=== PATIENT | female | born 2000 | race Caucasian/White ===

== ENCOUNTER 2018-10-21 17:47 | Emergency (ER) | payer SELFPAY ==
[~2018-10-21] VITALS: Ht 160 cm; Wt 68.7 kg
[2018-10-21 18:11] VITALS: BP 119/74; PULSE 72; RESP 16; Ht 160 cm; Wt 68.7 kg
== END 2018-10-22 00:24 | disposition left against medical advice (07) ==
LOC: FTE 17:47
DX: Z53.21 Procedure and treatment not carried out due to patient leaving prior to being seen by health care provider (principal)

== ENCOUNTER 2018-10-24 13:26 | Inpatient (IN) | payer MEDICAID ==
[~2018-10-24] VITALS: Ht 160 cm; Wt 75.6 kg
--- NOTE | 2018-10-24 13:39 | ERD ---
ER Documentation Chief Complaint Chief Complaint rt upper quadrant pain w/vomitting x6 days HPI The patient is a 18-year-old female, presenting to the ER because of right upper quad abdominal pain radiating to the right upper back with fever, vomiting and constipation for the last 6 days. She had similar symptoms previously, denies nasal congestion, cough, chest pain, dyspnea, dysuria. She does not smoke nor drink, currently on her menstrual period Medical/surgical history: None ROS All systems reviewed and are negative except as per history of present illness. Medications Home Meds No Active Prescriptions or Reported Meds Allergies Allergies: Coded Allergies: No Known Allergy (Unverified , 10/24/18) Physical Exam Vitals Vital Signs Date Temp Pulse Resp B/P (MAP) Pulse Ox O2 O2 Flow FiO2 Time Delivery Rate 10/24/18 99.5 102 19 103/52 98 Room Air 15:28 (69) 10/24/18 99.5 15:25 10/24/18 102.7 14:03 10/24/18 102.7 140 18 124/80 97 13:31 (95) Physical Exam Const: No acute distress. Head: Atraumatic. Eyes: Normal Conjunctiva. ENT: Normal External Ears, Nose and Mouth. Neck: Full range of motion. No meningismus. Resp: Clear to auscultation bilaterally. Cardio: Regular tachycardic. Abd: Soft, non distended, normal bowel sounds, moderate to moderate right upper quadrant tenderness, no right lower quadrant/rigidity/rebound tenderness, positive for moderate right CVA tenderness Skin: No petechiae or rashes. Back: No midline or flank tenderness. Ext: No cyanosis, or edema. Neur: Awake and alert. No focal deficit Psych: Normal Mood and Affect. Result Diagram: 10/24/18 1351 10/24/18 1351 Results 24 hrs Laboratory Tests Test 10/24/18 13:45 10/24/18 13:51 10/24/18 13:55 10/24/18 15:09 Bedside Urine pH 6.0 (LAB) Bedside Urine 1+ Protein (LAB) Bedside Urine Negative Glucose (UA) Bedside Urine 4+ Ketones (LAB) Bedside Urine 2+ Blood Bedside Urine Positive Nitrite (LAB) Bedside Urine 1+ Leukocyte Esterase (L POC Beta HCG, NEGATIVE Qualitative White Blood Count 18.8 10^3/ul Red Blood Count 4.65 10^6/ul Hemoglobin 13.0 g/dl Hematocrit 39.2 % Mean Corpuscular 84.3 fl Volume Mean Corpuscular 28.0 pg Hemoglobin Mean Corpuscular 33.2 g/dl Hemoglobin Concent Red Cell 13.2 % Distribution Width Platelet Count 230 10^3/UL Mean Platelet 11.6 fl Volume Immature 0.900 % Granulocytes % Neutrophils % 75.3 % Lymphocytes % 12.2 % Monocytes % 11.1 % Eosinophils % 0.1 % Basophils % 0.4 % Nucleated Red 0.0 /100WBC Blood Cells % Immature 0.160 10^3/ul Granulocytes # Neutrophils # 14.2 10^3/ul Lymphocytes # 2.3 10^3/ul Monocytes # 2.1 10^3/ul Eosinophils # 0.0 10^3/ul Basophils # 0.1 10^3/ul Nucleated Red 0.0 10^3/ul Blood Cells # Urine Color YELLOW Urine Clarity SLIGHTLY CLOUDY Urine pH 6.0 Urine Specific 1.011 [place] Urine Ketones 2+ mg/dL Urine Nitrite POSITIVE mg/dL Urine Bilirubin NEGATIVE mg/dL Urine Urobilinogen NEGATIVE mg/dL Urine Leukocyte 1+ Marjorie/ul Esterase Urine Microscopic 1 /HPF RBC Urine Microscopic 22 /HPF WBC Urine Bacteria FEW /HPF Urine Yeast FEW /HPF (Budding) Urine Hemoglobin 2+ mg/dL Urine Glucose NEGATIVE mg/dL Urine Total NEGATIVE mg/dl Protein Sodium Level 137 mmol/L Potassium Level 3.2 mmol/L Chloride Level 99 mmol/L Carbon Dioxide 26 mmol/L Level Anion Gap 12 Blood Urea 7 mg/dl Nitrogen Creatinine 0.85 mg/dl Est Glomerular > 60 mL/min Filtrat Rate mL/min Glucose Level 115 mg/dl Calcium Level 8.5 mg/dl Total Bilirubin 0.7 mg/dl Direct Bilirubin 0.00 mg/dl Indirect Bilirubin 0.7 mg/dl Aspartate Amino 33 IU/L Transf (AST/SGOT) Alanine 49 IU/L Aminotransferase ( ALT/SGPT) Alkaline 114 IU/L Phosphatase Total Protein 7.1 g/dl Albumin 3.8 g/dl Globulin 3.30 g/dl Albumin/Globulin 1.15 Ratio POC Venous Lactate 1.5 mmol/L Prothrombin Time 14.9 Sec Prothrombin Time 1.2 Ratio INR International 1.16 Normalized Ratio Activated 36.[address] Time Current Medications Medications Dose Sig/Stas Start Time Status Last (Trade) Ordered Route PRN Stop Time Admin Dose Reason Admin Sodium 2,100 ml BOLUS OVER 2 10/24/18 DC 10/24/18 Chloride HOURS STAT 13:45 14:04 (NS) IV* 10/24/18 13:48 650 mg ONCE STAT 10/24/18 DC 10/24/18 Acetaminophen PO 13:45 14:03 (Tylenol 10/24/18 13:48 Tab) Ondansetron 4 mg ONCE STAT 10/24/18 DC 10/24/18 HCl (Zofran IV 13:45 14:03 Inj) 10/24/18 13:48 Ceftriaxone 50 ml @ ONCE ONCE 10/24/18 10/24/18 Sodium 100 mls/hr IVPB 15:30 15:25 10/24/18 15:59 Ibuprofen 600 mg ONCE ONCE 10/24/18 DC 10/24/18 (Motrin) PO 15:30 15:25 10/24/18 15:31 Potassium 40 meq ONCE STAT 10/24/18 DC Chloride PO 15:33 (Klor-Con 20) 10/24/18 15:34 Procedures/[place] [address] Radiology Main Line: [phone] DIAGNOSTIC IMAGING REPORT Patient: OMID SMILEY : 2000 Age: 18 Sex: F MR #: [id number] DOS: 10/24/18 1345 Ordering MD: KENAN ROBERT MD Location: E/R Room/Bed: PROCEDURE: XR Chest. CLINICAL INDICATION: Possible Sepsis TECHNIQUE: Portable AP view of the chest was obtained. COMPARISON: None. FINDINGS: The cardiomediastinal silhouette is within normal limits. The lungs are clear. No signs of pleural fluid or pneumothorax are seen. The osseous structures and soft tissues are unremarkable. IMPRESSION: No evidence for active cardiopulmonary disease. RPTAT:AAJJ Physician Nasima Date Time Electronically viewed and signed by Raciel Kumar Physician on 10/24/2018 15:05 RF/ CC: KENAN ROBERT MD [id number] [place] [address] Radiology Main Line: [phone] DIAGNOSTIC IMAGING REPORT Patient: OMID SMILEY : 2000 Age: 18 Sex: F MR #: [id number] DOS: 10/24/18 1345 Ordering MD: KENAN ROBERT MD Location: E/R Room/Bed: PROCEDURE: US Abdomen. CLINICAL INDICATION: abdominal pain TECHNIQUE: Multiple real-time images were acquired of the patient's right upper quadrant abdomen and retroperitoneum utilizing a high resolution tr ansducer. COMPARISON: None FINDINGS: The liver demonstrates normal echogenicity. The liver is normal in size and no focal solid lesions are seen. The liver measures 16 cm in length. The portal vein is patent with normal direction of flow. No intrahepatic biliary dilatation is seen. No gallstones are identified within the gallbladder. There is no pericholecystic fluid or gallbladder wall thickening. The common bile duct measures 3 mm in maximal dimension. The visualized portions of the pancreas are unremarkable. The tail of the pancreas is not seen. No free fluid is identified. The right kidney is normal in size, and demonstrate normal echogenicity and cortical thickness. The right kidney measures 10.5 cm in long dimension. There is no evidence of hydronephrosis. There are no kidney stones. RPTAT: AA IMPRESSION: Unremarkable right upper quadrant abdominal ultrasound. .Elton Allen MD, MD Date Time Electronically viewed and signed by .Elton Allen MD, on 10/24/2018 15:27 .S/ CC: KENAN ROBERT MD [phone] EKG: Read by emergency physician Rate/Rhythm: Normal Sinus Rhythm 96 beats/min QRS, ST, T-waves: No ST elevation, no T inversion, LAE, prolong QT Impression: Abnormal EKG MEDICAL MAKING DECISION: The patient is a 18-year-old female, presenting with acute right pyelonephritis, acute hypokalemia. She was treated with normosaline 30 mm/kg IV for acute dehydration, Tylenol and Motrin for fever, Zofran 4 mg IV for nausea, Rocephin 1 g IV for acute pyelonephritis, potassium chloride 40 mEq p.o. for acute hypokalemia with good response. The differential diagnoses considered include but are not limited to cholelithiasis, cholecystitis, choledocholithiasis, cholangitis, pancreatitis, hepatitis, gastritis, peptic ulcer disease, gastric ulcer, appendicitis, cystitis, diverticulitis, partial small bowel obstruction. Departure Diagnosis: Primary Impression: Pyelonephritis of right kidney Additional Impression: Hypokalemia Condition: Stable Comments The patient's blood pressure was elevated (>120/80) but appears stable without evidence of hypertension emergency or urgency. The patient was counseled about the risks of hypertension and urged to pursue outpatient monitoring and therapy within a week with their primary care physician. I discussed the findings with the patient. I discussed the patient with the ander whitman , who was made aware of the lab, the treatment, the patient condition. The patient is admitted to [facility] Disclaimer: Inadvertent spelling and grammatical errors are likely due to EHR/dictation software use and do not reflect on the overall quality of patient care. Also, please note that the electronic time recorded on this note does not necessarily reflect the actual time of the patient encounter. KENAN ROBERT MD October 24, 2018 13:39
[2018-10-24] MEDS ORDERED: ACETAMINOPHEN 325 MG TAB PO STA (13:45)
[2018-10-24] MEDS ORDERED: ONDANSETRON 4 MG INJ IV STA (13:45)
[2018-10-24] MEDS ORDERED: SODIUM CHLORIDE 0.9% 1L BAG IV* STA (13:45)
[2018-10-24] MEDS ORDERED: CEFTRIAXONE 1 GM/50 ML (PMX) 50 ML IVPB ONE ×2 (15:30→16:30)
[2018-10-24] MEDS ORDERED: IBUPROFEN 600 MG TAB PO ONE (15:30)
[2018-10-24] MEDS ORDERED: POTASSIUM CHLORIDE (SR) 20 MEQ TAB PO STA (15:33)
--- NOTE | 2018-10-24 16:07 | HP ---
Date/Time of Note Date/Time of Note DATE: 10/24/18 TIME: 16:07 Assessment/Plan VTE Prophylaxis Pharmacological prophylaxis: LMWH Lines/Catheters IV [facility] Saline Lock Assessment/Plan Hospital Course 18-year-old female with no significant comorbidities who came to the emergency room with chief complaint of fevers with nausea/vomiting and right sided abdominal/flank pain, who was found to have evidence of underlying sepsis and will be admitted to inpatient setting for further treatment and evaluation. 1. Sepsis with leukocytosis, febrile illness, and tachycardia, present on admission. -Most probably secondary to underlying right-sided pyelonephritis. -Continue empiric antimicrobials. -Send linares cultures. -Continue IV fluids. -Monitor for any early signs of septic shock. 2. Right pyelonephritis -Continue IV hydration. -Continue empiric antimicrobials -Await final urine cultures. Plan: The patient will be admitted to inpatient medical surgical floor. The patient will be started on a regular diet. The patient will be started on DVT prophylaxis. The patient will remain a full code. Activities will be as tolerated. The rest of the patient's management will be based on the clinical course and the results of diagnostic studies. Based on the patient's clinical presentation, she most probably requires at least 1 midnight's stay for further management and evaluation of her clinical presentation. The patient was seen in collaboration with Dr. Hankins. Result Diagram: 10/24/18 1351 10/24/18 1351 Results 24hrs Laboratory Tests Test 10/24/18 13:45 10/24/18 13:51 10/24/18 13:55 10/24/18 15:09 Bedside Urine pH 6.0 (LAB) Bedside Urine 1+ H Protein (LAB) Bedside Urine Negative Glucose (UA) Bedside Urine 4+ H Ketones (LAB) Bedside Urine 2+ H Blood Bedside Urine Positive H Nitrite (LAB) Bedside Urine 1+ H Leukocyte Esteras e (L POC Beta HCG, NEGATIVE Qualitative White Blood Count 18.8 H Red Blood Count 4.65 Hemoglobin 13.0 Hematocrit 39.2 Mean Corpuscular 84.3 Volume Mean Corpuscular 28.0 L Hemoglobin Mean Corpuscular 33.2 Hemoglobin Concen t Red Cell 13.2 Distribution Width Platelet Count 230 Mean Platelet 11.6 H Volume Immature 0.900 H Granulocytes % Neutrophils % 75.3 H Lymphocytes % 12.2 L Monocytes % 11.1 Eosinophils % 0.1 Basophils % 0.4 Nucleated Red 0.0 Blood Cells % Immature 0.160 H Granulocytes # Neutrophils # 14.2 H Lymphocytes # 2.3 Monocytes # 2.1 H Eosinophils # 0.0 Basophils # 0.1 Nucleated Red 0.0 Blood Cells # Urine Color YELLOW Urine Clarity SLIGHTLY CLOUDY A Urine pH 6.0 Urine Specific 1.011 [place] Urine Ketones 2+ H Urine Nitrite POSITIVE A Urine Bilirubin NEGATIVE Urine NEGATIVE Urobilinogen Urine Leukocyte 1+ H Esterase Urine Microscopic 1 RBC Urine Microscopic 22 H WBC Urine Bacteria FEW A Urine Yeast FEW A (Budding) Urine Hemoglobin 2+ H Urine Glucose NEGATIVE Urine Total NEGATIVE Protein Sodium Level 137 Potassium Level 3.2 L Chloride Level 99 Carbon Dioxide 26 Level Anion Gap 12 Blood Urea 7 Nitrogen Creatinine 0.85 Est Glomerular > 60 Filtrat Rate mL/min Glucose Level 115 Calcium Level 8.5 Total Bilirubin 0.7 Direct Bilirubin 0.00 Indirect 0.7 Bilirubin Aspartate Amino 33 Transf (AST/SGOT) Alanine 49 Aminotransferase (ALT/SGPT) Alkaline 114 Phosphatase Total Protein 7.1 Albumin 3.8 Globulin 3.30 H Albumin/Globulin 1.15 Ratio POC Venous 1.5 Lactate Prothrombin Time 14.9 Prothrombin Time 1.2 Ratio INR International 1.16 Normalized Ratio Activated 36.9 H Partial Thrombopl ast Time Test 10/24/18 15:10 Lactic Acid Level 0.8 HPI/ROS Admit Date/Time Admit Date/Time Hx of Present Illness Reason for admission: Sepsis secondary to right pyelonephritis. This is a 18-year-old female who denies any significant past medical history. She started having pain in the right upper quadrant with associated fevers and chills with the pain radiating to the back since 10/19/2018. The patient came to the emergency room at [facility] on 10/21/2018. However, she left the ER before she was evaluated. The patient has been taking [id number] Advil and Tylenol with minimal relief in her symptomatology. The patient had poor oral intake. The patient had multiple episodes of nausea and nonbilious, nonbloody vomiting. The patient denied any sick contacts. The patient denied any sore throat, cough, or dyspnea. The patient denied any headache. She denied any diarrhea. She denied any dysuria or hematuria. She denied any urinary frequency or urgency. In the emergency room, the patient was noticed to have sepsis with underlying leukocytosis, febrile illness, and tachycardia. The patient's urinalysis was positive with positive leukocyte esterase and positive nitrate. The patient was given IV fluid bolus, IV pain control, and IV antibiotics. ROS Constitutional: chills, febrile, poor po Eyes: no complaints ENT: no complaints Respiratory: no complaints Cardiovascular: no complaints Gastrointestinal: pain, nausea, vomiting Genitourinary: flank pain Musculoskeletal: no complaints Skin: no complaints Neurologic: no complaints Endocrine: no complaints Lymphatic: no complaints Psychological: no complaints Immunologic: no complaints PMH/Family/Social Past Medical History Medical History: no pertinent history Coded Allergies: No Known Allergy (Unverified , 10/24/18) Past Surgical History Past Surgical Hx: no surgical history Social History Works at [employer] Lives at home. Alcohol Use: none Smoking Status: Never smoker Drug Use: none Exam/Review of Systems Vital Signs Vitals Vital Signs Date Temp Pulse Resp B/P (MAP) Pulse Ox O2 O2 Flow FiO2 Time Delivery Rate 10/24/18 99.5 102 19 103/52 98 Room Air 15:28 (69) Exam Exam General: Adequately build 18 year-old female lying in bed in no apparent distress. HEENT: Normocephalic, atraumatic. Eyes: Anicteric sclerae, conjunctivae clear. ENT: Nasal septum midline, oral mucosa moist. Neck supple, no JVD noticed. Respiratory: Bilaterally clear breath sounds. No use of accessory muscles of respiration. No adventitious breath sounds. Cardiovascular: S1, S2 heard. Regular rate and rhythm. Abdomen: Soft and nondistended. Bowel sounds positive in all 4 quadrants. Genitourinary: Right CVA tenderness. Extremities: No cyanosis, no clubbing, no edema. Peripheral pulses palpable. Neurologic: Cranial nerves II through XII grossly intact. The patient is awake, alert, and oriented. Skin: Normal skin turgor. No skin rashes. Additional Comments Abdominal Ultrasound IMPRESSION: Unremarkable right upper quadrant abdominal ultrasound. CXR IMPRESSION: No evidence for active cardiopulmonary disease. 12-Lead EKG Normal sinus rhythm. JODIE DOAN NP October 24, 2018 16:07
[2018-10-24] MEDS ORDERED: ACETAMINOPHEN 325 MG TAB PO PRN (16:30)
[2018-10-24] MEDS: SOD CHLORIDE 0.9% 1,000 ML IV SCH (16:30)
[2018-10-24] MEDS ORDERED: NACL 0.9% 3 ML SYG IV SCH (16:30)
[2018-10-24] MEDS ORDERED: ONDANSETRON 4 MG INJ IV PRN (16:30)
[2018-10-24 17:25] VITALS: BP 105/56; PULSE 82; RESP 18
[2018-10-24 17:56] VITALS: Ht 160 cm; Wt 75.6 kg
[2018-10-24 20:00] VITALS: BP 91/54; PULSE 74; RESP 18
[2018-10-25] MEDS: SOD CHLORIDE 0.9% 1,000 ML IV SCH ×4 (01:52→23:14)
[2018-10-25] MEDS: HYDROCODONE/APAP (5/325) TAB PO PRN ×2 (01:53→23:14)
[2018-10-25 02:00] VITALS: BP 117/82; PULSE 119; RESP 17
[2018-10-25 03:33] VITALS: PULSE 90
[2018-10-25 08:02] VITALS: BP 112/56; PULSE 120; RESP 18
[2018-10-25] MEDS: ENOXAPARIN 40 MG/0.4 ML SYG SC SCH (08:29)
--- NOTE | 2018-10-25 10:58 | PN ---
Date/Time of Note Date/Time of Note DATE: 10/25/18 TIME: 10:57 Assessment/Plan VTE Prophylaxis Risk score (from Ns)>0 risk: 2 SCD applied (from Ns): Yes Pharmacological prophylaxis: LMWH Lines/Catheters IV Catheter Type (from Rust): Peripheral IV Assessment/Plan Hospital Course SUBJECTIVE: Denies any abdominal pain. Continues to have some back pain. Denies any nausea vomiting. Had febrile episodes today. Denies any dysuria. OBJECTIVE: Physical Exam General: Adequately build 18 year-old female lying in bed in no apparent distress. HEENT: Normocephalic, atraumatic. Eyes: Anicteric sclerae, conjunctivae clear. ENT: Nasal septum midline, oral mucosa moist. Neck supple, no JVD noticed. Respiratory: Bilaterally clear breath sounds. No use of accessory muscles of respiration. No adventitious breath sounds. Cardiovascular: S1, S2 heard. Regular rate and rhythm. Abdomen: Soft and nondistended. Bowel sounds positive in all 4 quadrants. Genitourinary: Right CVA tenderness. Extremities: No cyanosis, no clubbing, no edema. Peripheral pulses palpable. Neurologic: Cranial nerves II through XII grossly intact. The patient is awake, alert, and oriented. Skin: Normal skin turgor. No skin rashes. Labs & Vitals per chart ASSESSMENT & PLAN 18-year-old female with no significant comorbidities who came to the emergency room with chief complaint of fevers with nausea/vomiting and right sided abdominal/flank pain, who was found to have evidence of underlying sepsis and was admitted to inpatient setting for further treatment and evaluation. 1. Sepsis with leukocytosis, febrile illness, and tachycardia, present on admission. -Most probably secondary to underlying right-sided pyelonephritis. -Continue empiric antimicrobials. -Sweeney cultures pending. -Continue IV fluids. -Monitor for any early signs of septic shock. 2. Right pyelonephritis -Continue IV hydration. -Continue empiric antimicrobials -Await final urine cultures. 3. Fluids, electrolytes, and nutrition. -Regular diet. 4. DVT prophylaxis -Subcutaneous Lovenox. 5. Plan. -Continue antimicrobials. -Continue IV fluids. -Await final cultures. The patient was seen in collaboration with Dr. Hankins. Result Diagram: 10/25/18 0534 10/25/18 0534 Results 24hrs Laboratory Tests Test 10/24/18 13:45 10/24/18 13:51 10/24/18 13:55 10/24/18 15:09 Bedside Urine pH 6.0 (LAB) Bedside Urine 1+ H Protein (LAB) Bedside Urine Negative Glucose (UA) Bedside Urine 4+ H Ketones (LAB) Bedside Urine 2+ H Blood Bedside Urine Positive H Nitrite (LAB) Bedside Urine 1+ H Leukocyte Esteras e (L POC Beta HCG, NEGATIVE Qualitative White Blood Count 18.8 H Red Blood Count 4.65 Hemoglobin 13.0 Hematocrit 39.2 Mean Corpuscular 84.3 Volume Mean Corpuscular 28.0 L Hemoglobin Mean Corpuscular 33.2 Hemoglobin Concen t Red Cell 13.2 Distribution Width Platelet Count 230 Mean Platelet 11.6 H Volume Immature 0.900 H Granulocytes % Neutrophils % 75.3 H Lymphocytes % 12.2 L Monocytes % 11.1 Eosinophils % 0.1 Basophils % 0.4 Nucleated Red 0.0 Blood Cells % Immature 0.160 H Granulocytes # Neutrophils # 14.2 H Lymphocytes # 2.3 Monocytes # 2.1 H Eosinophils # 0.0 Basophils # 0.1 Nucleated Red 0.0 Blood Cells # Urine Color YELLOW Urine Clarity SLIGHTLY CLOUDY A Urine pH 6.0 Urine Specific 1.011 [place] Urine Ketones 2+ H Urine Nitrite POSITIVE A Urine Bilirubin NEGATIVE Urine NEGATIVE Urobilinogen Urine Leukocyte 1+ H Esterase Urine Microscopic 1 RBC Urine Microscopic 22 H WBC Urine Bacteria FEW A Urine Yeast FEW A (Budding) Urine Hemoglobin 2+ H Urine Glucose NEGATIVE Urine Total NEGATIVE Protein Sodium Level 137 Potassium Level 3.2 L Chloride Level 99 Carbon Dioxide 26 Level Anion Gap 12 Blood Urea 7 Nitrogen Creatinine 0.85 Est Glomerular > 60 Filtrat Rate mL/min Glucose Level 115 Calcium Level 8.5 Total Bilirubin 0.7 Direct Bilirubin 0.00 Indirect 0.7 Bilirubin Aspartate Amino 33 Transf (AST/SGOT) Alanine 49 Aminotransferase (ALT/SGPT) Alkaline 114 Phosphatase Total Protein 7.1 Albumin 3.8 Globulin 3.30 H Albumin/Globulin 1.15 Ratio POC Venous 1.5 Lactate Prothrombin Time 14.9 Prothrombin Time 1.2 Ratio INR International 1.16 Normalized Ratio Activated 36.9 H Partial Thrombopl ast Time Test 10/24/18 15:10 10/24/18 16:54 10/25/18 05:34 Lactic Acid Level 0.8 0.8 1.0 White Blood Count 16.3 H Red Blood Count 4.02 L Hemoglobin 11.2 L Hematocrit 34.8 L Mean Corpuscular 86.6 Volume Mean Corpuscular 27.9 L Hemoglobin Mean Corpuscular 32.2 Hemoglobin Concen t Red Cell 13.2 Distribution Width Platelet Count 221 Mean Platelet 10.9 H Volume Immature 0.800 H Granulocytes % Neutrophils % 78.0 H Lymphocytes % 11.4 L Monocytes % 8.8 Eosinophils % 0.7 Basophils % 0.3 Nucleated Red 0.0 Blood Cells % Immature 0.130 H Granulocytes # Neutrophils # 12.7 H Lymphocytes # 1.9 Monocytes # 1.4 H Eosinophils # 0.1 Basophils # 0.1 Nucleated Red 0.0 Blood Cells # Sodium Level 137 Potassium Level 4.0 Chloride Level 105 Carbon Dioxide 26 Level Anion Gap 6 Blood Urea 4 L Nitrogen Creatinine 0.64 Est Glomerular > 60 Filtrat Rate mL/min Glucose Level 91 Calcium Level 8.2 L Phosphorus Level 2.9 Magnesium Level 2.1 Total Bilirubin 0.5 Direct Bilirubin 0.00 Indirect 0.5 Bilirubin Aspartate Amino 21 Transf (AST/SGOT) Alanine 37 Aminotransferase (ALT/SGPT) Alkaline 90 Phosphatase Total Protein 6.1 # Albumin 3.1 L Globulin 3.00 Albumin/Globulin 1.03 Ratio Exam/Review of Systems Exam Vitals Vital Signs Date Temp Pulse Resp B/P (MAP) Pulse Ox O2 O2 Flow FiO2 Time Delivery Rate 10/25/18 98.7 09:16 10/25/18 120 18 112/56 96 Room Air 08:02 (74) Intake and Output 10/24/18 10/24/18 10/25/18 1515:00 23:00 07:00 IntakeIntake Total 350 ml 1100 ml BalanceBalance 350 ml 1100 ml Results Results 24hrs Laboratory Tests Test 10/24/18 13:45 10/24/18 13:51 10/24/18 13:55 10/24/18 15:09 Bedside Urine pH 6.0 (LAB) Bedside Urine 1+ H Protein (LAB) Bedside Urine Negative Glucose (UA) Bedside Urine 4+ H Ketones (LAB) Bedside Urine 2+ H Blood Bedside Urine Positive H Nitrite (LAB) Bedside Urine 1+ H Leukocyte Esteras e (L POC Beta HCG, NEGATIVE Qualitative White Blood Count 18.8 H Red Blood Count 4.65 Hemoglobin 13.0 Hematocrit 39.2 Mean Corpuscular 84.3 Volume Mean Corpuscular 28.0 L Hemoglobin Mean Corpuscular 33.2 Hemoglobin Concen t Red Cell 13.2 Distribution Width Platelet Count 230 Mean Platelet 11.6 H Volume Immature 0.900 H Granulocytes % Neutrophils % 75.3 H Lymphocytes % 12.2 L Monocytes % 11.1 Eosinophils % 0.1 Basophils % 0.4 Nucleated Red 0.0 Blood Cells % Immature 0.160 H Granulocytes # Neutrophils # 14.2 H Lymphocytes # 2.3 Monocytes # 2.1 H Eosinophils # 0.0 Basophils # 0.1 Nucleated Red 0.0 Blood Cells # Urine Color YELLOW Urine Clarity SLIGHTLY CLOUDY A Urine pH 6.0 Urine Specific 1.011 [place] Urine Ketones 2+ H Urine Nitrite POSITIVE A Urine Bilirubin NEGATIVE Urine NEGATIVE Urobilinogen Urine Leukocyte 1+ H Esterase Urine Microscopic 1 RBC Urine Microscopic 22 H WBC Urine Bacteria FEW A Urine Yeast FEW A (Budding) Urine Hemoglobin 2+ H Urine Glucose NEGATIVE Urine Total NEGATIVE Protein Sodium Level 137 Potassium Level 3.2 L Chloride Level 99 Carbon Dioxide 26 Level Anion Gap 12 Blood Urea 7 Nitrogen Creatinine 0.85 Est Glomerular > 60 Filtrat Rate mL/min Glucose Level 115 Calcium Level 8.5 Total Bilirubin 0.7 Direct Bilirubin 0.00 Indirect 0.7 Bilirubin Aspartate Amino 33 Transf (AST/SGOT) Alanine 49 Aminotransferase (ALT/SGPT) Alkaline 114 Phosphatase Total Protein 7.1 Albumin 3.8 Globulin 3.30 H Albumin/Globulin 1.15 Ratio POC Venous 1.5 Lactate Prothrombin Time 14.9 Prothrombin Time 1.2 Ratio INR International 1.16 Normalized Ratio Activated 36.9 H Partial Thrombopl ast Time Test 10/24/18 15:10 10/24/18 16:54 10/25/18 05:34 Lactic Acid Level 0.8 0.8 1.0 White Blood Count 16.3 H Red Blood Count 4.02 L Hemoglobin 11.2 L Hematocrit 34.8 L Mean Corpuscular 86.6 Volume Mean Corpuscular 27.9 L Hemoglobin Mean Corpuscular 32.2 Hemoglobin Concen t Red Cell 13.2 Distribution Width Platelet Count 221 Mean Platelet 10.9 H Volume Immature 0.800 H Granulocytes % Neutrophils % 78.0 H Lymphocytes % 11.4 L Monocytes % 8.8 Eosinophils % 0.7 Basophils % 0.3 Nucleated Red 0.0 Blood Cells % Immature 0.130 H Granulocytes # Neutrophils # 12.7 H Lymphocytes # 1.9 Monocytes # 1.4 H Eosinophils # 0.1 Basophils # 0.1 Nucleated Red 0.0 Blood Cells # Sodium Level 137 Potassium Level 4.0 Chloride Level 105 Carbon Dioxide 26 Level Anion Gap 6 Blood Urea 4 L Nitrogen Creatinine 0.64 Est Glomerular > 60 Filtrat Rate mL/min Glucose Level 91 Calcium Level 8.2 L Phosphorus Level 2.9 Magnesium Level 2.1 Total Bilirubin 0.5 Direct Bilirubin 0.00 Indirect 0.5 Bilirubin Aspartate Amino 21 Transf (AST/SGOT) Alanine 37 Aminotransferase (ALT/SGPT) Alkaline 90 Phosphatase Total Protein 6.1 # Albumin 3.1 L Globulin 3.00 Albumin/Globulin 1.03 Ratio Medications Medication Current Medications Sodium Chloride 1,000 ml @ 100 mls/hr Q10H IV Last administered on 10/25/18at 01:52; Admin Dose 100 MLS/HR; Start 10/24/18 at 16:12; Stop 10/25/18 at 12:11 IV Flush (NS 3 ml) 3 ml PER PROTOCOL IV ; Start 10/24/18 at 16:30 Ondansetron HCl (Zofran Inj) 4 mg Q6H PRN IV NAUSEA/VOMITING; Start 10/24/18 at 16:30 Acetaminophen (Tylenol Tab) 650 mg Q6H PRN PO .PAIN 1-3 OR TEMP Last administered on 10/25/18at 07:50; Admin Dose 650 MG; Start 10/24/18 at 16:30 Acetaminophen/ Hydrocodone Bitart ([place] (5/325)) 1 tab Q6H PRN PO .PAIN 4-6 Last administered on 10/25/18at 01:53; Admin Dose 1 TAB; Start 10/24/18 at 16:30 Enoxaparin Sodium (Lovenox) 40 mg DAILY SC Last administered on 10/25/18at 08:29; Admin Dose 40 MG; Start 10/25/18 at 09:00 Ceftriaxone Sodium 50 ml @ 100 mls/hr Q24H IVPB ; Start 10/25/18 at 11:00 Sodium Chloride 1,000 ml @ 100 mls/hr Q10H IV ; Start 10/25/18 at 11:00; Status UNV Polyethylene Glycol (Miralax) 17 gm BID PO ; Start 10/25/18 at 11:00; Status UNV Bisacodyl (Dulcolax) 10 mg ONCE ONCE PO ; Start 10/25/18 at 11:00; Stop 10/25/18 at 11:01 JODIE DOAN NP October 25, 2018 10:58
[2018-10-25] MEDS ORDERED: BISACODYL (EC) 5 MG TAB PO ONE (11:00)
[2018-10-25] MEDS: CEFTRIAXONE 1 GM/50 ML (PMX) 50 ML IVPB SCH (11:10)
[2018-10-25] MEDS: POLYETHYLENE GLYCOL 17 GM PACKET PO SCH ×2 (11:10→21:03)
[2018-10-25 14:00] VITALS: BP 114/66; PULSE 88; RESP 18
[2018-10-25 20:00] VITALS: BP 96/56; PULSE 94; RESP 18
[2018-10-26 02:00] VITALS: BP 108/64; PULSE 67; RESP 17
[2018-10-26 08:00] VITALS: BP 127/59; PULSE 59; RESP 18
[2018-10-26] MEDS: POLYETHYLENE GLYCOL 17 GM PACKET PO SCH (09:00)
[2018-10-26] MEDS: ENOXAPARIN 40 MG/0.4 ML SYG SC SCH (09:00)
[2018-10-26] MEDS: CEFTRIAXONE 1 GM/50 ML (PMX) 50 ML IVPB SCH (10:27)
[2018-10-26] MEDS: SOD CHLORIDE 0.9% 1,000 ML IV SCH (10:28)
[2018-10-26] MEDS ORDERED: Work Note (13:31)
[2018-10-26] MEDS ORDERED: LEVO500T10 PO (13:31)
--- NOTE | 2018-10-26 13:33 | PDOCDIS ---
Discharge Instructions CONDITION [id number] Patient Condition: [id number] Stable HOME CARE INSTRUCTIONS: [id number] Diet Instructions: [id number] Regular OTHER ORDERS: Other Orders: 1. Complete the course of antibiotics. 2. Take a regular diet. Adequately hydrate yourself. 3. Resume activities as tolerated. 4. Please follow-up with your primary care physician in 1 week. 5. Please go to the nearest emergency room if you have persistent fevers, persistent nausea/vomiting, significant abdominal pain, or any other unusual signs/symptoms. JODIE DOAN NP October 26, 2018 13:32
--- NOTE | 2018-10-26 13:37 | DS ---
Date/Time of Note Date/Time of Note DATE: 10/26/18 TIME: 13:34 Discharge Summary Admission/Discharge Info Admit Date/Time October 25, 2018 at 11:42 Discharge Date/Time Discharge Diagnosis 1. S/P sepsis with leukocytosis, febrile illness, and tachycardia, present on admission. 2. Right pyelonephritis Patient Condition: Stable Procedures Abdominal Ultrasound IMPRESSION: Unremarkable right upper quadrant abdominal ultrasound. Hx of Present Illness Reason for admission: Sepsis secondary to right pyelonephritis. This is a 18-year-old female who denies any significant past medical history. She started having pain in the right upper quadrant with associated fevers and chills with the pain radiating to the back since 10/19/2018. The patient came to the emergency room at [facility] on 10/21/2018. However, she left the ER before she was evaluated. The patient has been taking [id number] Advil and Tylenol with minimal relief in her symptomatology. The patient had poor oral intake. The patient had multiple episodes of nausea and nonbilious, nonbloody vomiting. The patient denied any sick contacts. The patient denied any sore throat, cough, or dyspnea. The patient denied any headache. She denied any diarrhea. She denied any dysuria or hematuria. She denied any urinary frequency or urgency. In the emergency room, the patient was noticed to have sepsis with underlying leukocytosis, febrile illness, and tachycardia. The patient's urinalysis was positive with positive leukocyte esterase and positive nitrate. The patient was given IV fluid bolus, IV pain control, and IV antibiotics. Hospital Course Patient was admitted to inpatient setting. She was maintained on empiric antimicrobials. The patient was continued on IV fluids. The patient was closely monitored for any early signs of septic shock. The patient's pancultures showed positive E. coli in the urine with colony count more than 100,000 CFU per mL. The patient also had evidence of right-sided pyelonephritis, the reason for her underlying sepsis. The patient was maintained on ceftriaxone until the cultures were available. The cultures showed E. coli pansensitive. Therefore, the patient will be discharged home on fluoroquinolones to complete a course of 14 days. The patient responded well to antimicrobial therapy. The patient had remained fever free for more than 24 hours. The patient's symptomatology had significantly improved. The patient is a relatively healthy young female with no other significant comorbidities. The patient is stable for outpatient management. Discharge Instructions 1. Complete the course of antibiotics. 2. Take a regular diet. Adequately hydrate yourself. 3. Resume activities as tolerated. 4. Please follow-up with your primary care physician in 1 week. 5. Please go to the nearest emergency room if you have persistent fevers, persistent nausea/vomiting, significant abdominal pain, or any other unusual signs/symptoms. The patient verbalized understanding of her discharge instructions. The patient was seen in collaboration with Dr. Hankins. [facility] [employer] [Work Note] No Conflict Check This is to certify that at this patient was admitted to [facility] from 10/24/2018 to 10/26/2018. She may return back to work with no restrictions on October 31, 2018 Prov:JODIE DOAN NP 10/26/18 Levofloxacin* (Levofloxacin*) 500 Mg Tablet, 500 MG PO DAILY, #11 TAB The patient already received the dose for 3 days. Prov:JODIE DOAN NP 10/26/18 Follow-up Plan Follow-up with PCP in 1 week. Primary Care Provider Care Physician No Primary Time spent on discharge: > 30 minutes Pending Labs RUN DATE: 10/26/18 [facility] PAGE 1 RUN TIME: [id number] [place] [address] Edwin Carias M.D. [employer] Hudson Roman M.D. [employer] KERRY#: [id number] Name: OMID SMILEY Age/Sex: 18/F Attend Dr: SESAR HANKINS MD Acct: [id number] MR# : [id number] : 2000 Location: [address] Admit: 10/25/18 Specimen: [id number] Status: Complete Angelica: 10/24/18-135 Rcvd: 10/24/18 Source: CATHETER U Sp Descrip: Procedure Result --------- Microbiology URINE CULTURE Final Organism 1 ESCHERICHIA COLI COLONY COUNT >100,000 CFU/ml E COLI M.I.C. RX --------- --- AMPICILLIN <=2 S CEFAZOLIN <=4 S CEFOTAXIME S CIPROFLOXACIN <=0.25 S GENTAMICIN <=1 S LEVOFLOXACIN <=0.12 S NITROFURANTOIN <=16 S TOBRAMYCIN <=1 S TRIMETHOPRIM/SULFAMETHOXAZOLE <=20 S ............................................................................................ Flags: Critical Hi = *H Critical Lo = *L Microbiology Abnormal = * Abnormal Hi = H Abnormal Lo = L Blood Bank Abnormal = * Susceptability Flags: S = Sensitive R = Resistant I = Intermediate END OF REPORT Laboratory Tests Test 10/26/18 04:58 White Blood Count 12.0 10^3/ul (4.8-10.8) Red Blood Count 4.03 10^6/ul (4.20-5.40) Hemoglobin 11.4 g/dl (12.0-16.0) Hematocrit 34.6 % (37.0-47.0) Mean Corpuscular Volume 85.9 fl (72.0-104.0) Mean Corpuscular Hemoglobin 28.3 pg (29.0-33.0) Mean Corpuscular Hemoglobin Concent 32.9 g/dl (32.0-37.0) Red Cell Distribution Width 13.2 % (11.5-14.5) Platelet Count 271 10^3/UL (140-415) Mean Platelet Volume 11.0 fl (7.4-10.4) Immature Granulocytes % 1.300 % (0.001-0.429) Neutrophils % 64.4 % (30.0-74.0) Lymphocytes % 22.7 % (18.0-55.0) Monocytes % 9.4 % (0.0-13.0) Eosinophils % 1.8 % (0.0-7.0) Basophils % 0.4 % (0.0-2.0) Nucleated Red Blood Cells % 0.0 /100WBC (0.0-0.0) Immature Granulocytes # 0.160 10^3/ul (0.0-0.031) Neutrophils # 7.7 10^3/ul (1.6-7.5) Lymphocytes # 2.7 10^3/ul (0.8-2.9) Monocytes # 1.1 10^3/ul (0.3-0.9) Eosinophils # 0.2 10^3/ul (0.0-0.5) Basophils # 0.1 10^3/ul (0.0-0.1) Nucleated Red Blood Cells # 0.0 10^3/ul (0.0-0.0) Sodium Level 140 mmol/L (135-144) Potassium Level 4.0 mmol/L (3.5-5.1) Chloride Level 104 mmol/L (97-110) Carbon Dioxide Level 27 mmol/L (21-31) Anion Gap 9 (5-13) Blood Urea Nitrogen 4 mg/dl (7-20) Creatinine 0.59 mg/dl (0.44-1.00) Est Glomerular Filtrat Rate mL/min > 60 mL/min (>60) Glucose Level 82 mg/dl (70-220) Calcium Level 8.4 mg/dl (8.4-10.2) Phosphorus Level 4.1 mg/dl (2.5-4.9) Magnesium Level 2.3 mg/dl (1.7-2.5) Total Bilirubin 0.4 mg/dl (0.2-1.3) Direct Bilirubin 0.00 mg/dl (0.00-0.20) Indirect Bilirubin 0.4 mg/dl (0-1.1) Aspartate Amino Transf (AST/SGOT) 33 IU/L (15-46) Alanine Aminotransferase (ALT/SGPT) 48 IU/L (13-69) Alkaline Phosphatase 89 IU/L (42-121) Total Protein 5.9 g/dl (6.1-8.1) Albumin 3.0 g/dl (3.3-4.9) Globulin 2.90 g/dl (1.3-3.2) Albumin/Globulin Ratio 1.03 JODIE DOAN NP October 26, 2018 13:37
[2018-10-26 14:00] VITALS: BP 115/60; PULSE 74; RESP 19
== END 2018-10-26 16:32 | disposition home or self-care (01) | DRG 872 ==
LOC: E/R 13:26 → PP2 15:45 → OBSVTOIN 10-25 11:42
PROVIDERS: ADMIT Internal Medicine; ATTEND Internal Medicine
DX: A41.9 Sepsis, unspecified organism (principal); N12 Tubulo-interstitial nephritis, not specified as acute or chronic; R11.10 Vomiting, unspecified; K59.00 Constipation, unspecified; E87.6 Hypokalemia; B96.20 Unspecified Escherichia coli [E. coli] as the cause of diseases classified elsewhere
CPT/HCPCS: 36415; 71045; 74018; 76705; 76775; 80053; 81001; 81003; 81025; 83605; 83735; 84100; 85025; 85610; 85730; 87086; 87400; 93005; 96374; 96375; G0378; J0696; J1650; J2405; J7030

== ENCOUNTER 2019-01-31 21:43 | Emergency (ER) | payer MEDICAID ==
[~2019-01-31] VITALS: Ht 162.6 cm; Wt 72.2 kg
[~2019-01-31 21:43] MED LIST: CYCL10TA7 PO; IBUP800T48 PO; LEVO500T10 PO; Work Note
[2019-01-31 21:53] VITALS: BP 118/58; PULSE 67; RESP 18; Ht 162.6 cm; Wt 72.2 kg
[2019-01-31] MEDS ORDERED: IBUPROFEN 800 MG TAB PO ONE (23:00)
[2019-01-31] MEDS ORDERED: CYCLOBENZAPRINE 10 MG TAB PO ONE (23:00)
== END 2019-01-31 23:40 | disposition home or self-care (01) ==
LOC: FTE 21:43
DX: S16.1XXA Strain of muscle, fascia and tendon at neck level, initial encounter (principal); V49.50XA Passenger injured in collision with unspecified motor vehicles in traffic accident, initial encounter
CPT/HCPCS: Z7502; Z7610; 99283